=== PATIENT | female | born 1990 ===

== ENCOUNTER 2018-03-11 10:22 | Emergency (ER) | payer OTHER ==
[2018-03-11 10:39] VITALS: RESP 18; O2SAT 100
[2018-03-11] MEDS ORDERED: Sodium Chloride 0.9% 1,000 ML IV STA (11:11)
--- NOTE | 2018-03-11 11:23 | ED PDOC ---
Arrival/HPI - General Chief Complaint: GI Problem Time Seen by Provider: 03/11/18 11:08 Historian: Patient - History of Present Illness Narrative History of Present Illness (Text): 03/11/18 11:20 27 year old female presents to the Emergency department complaining of nausea for 3 days. Nausea is worsened when the patient eats. Patient also complains of associated lightheadedness and fatigue. Last menstrual period started 03/01 but the patient reports it was shorter than usual. Patient denies any abdominal pain , fever, chills, chest pain, shortness of breath, vomiting, diarrhea, urinary symptoms, back pain, neck pain, or any other complaints. 03/11/18 13:47 Time/Duration: < week (3 days) Symptom Onset: Gradual Symptom Course: Unchanged Context: Home Past Medical History - Provider Review Nursing Documentation Reviewed: Yes - Psychiatric Hx Substance Use: No Family/Social History - Physician Review Nursing Documentation Reviewed: Yes Family/Social History: Unknown Family HX Smoking Status: Never Smoked Hx Alcohol Use: No Hx Substance Use: No Allergies/Home Meds Allergies/Adverse Reactions: Allergies No Known Allergies Allergy (Verified 03/11/18 10:39) Review of Systems - Review of Systems Constitutional: Fatigue. absent: Weight Change, Fevers, Night Sweats Eyes: absent: Vision Changes ENT: absent: Sore Throat, Rhinorrhea Respiratory: absent: SOB, Cough Cardiovascular: absent: Chest Pain Gastrointestinal: Nausea. absent: Abdominal Pain, Constipation, Diarrhea, Vomiting Genitourinary Female: absent: Dysuria, Vaginal Bleeding, Vaginal Discharge Musculoskeletal: absent: Back Pain, Neck Pain Skin: absent: Rash Neurological: Other (lightheaded). absent: Headache, Dizziness, Focal Weakness , Gait Changes, Speech Changes, Facial Droop, Disequilibrium Endocrine: absent: Diaphoresis Psychiatric: absent: Anxiety, Depression Physical Exam Vital Signs Reviewed: Yes Vital Signs Temp Pulse Resp BP Pulse Ox 03/11/18 10:36 98.3 F 74 18 121/79 100 Temperature: Afebrile Blood Pressure: Normal Pulse: Regular Respiratory Rate: Normal Appearance: Positive for: Well-Appearing, Non-Toxic, Comfortable Pain Distress: None Mental Status: Positive for: Alert and Oriented X 3 - Systems Exam Head: Present: Atraumatic, Normocephalic Pupils: Present: PERRL Extroacular Muscles: Present: EOMI Conjunctiva: Present: Normal Ears: Present: Normal, NORMAL TM. No: Erythema Mouth: Present: Moist Mucous Membranes Pharnyx: Present: Normal. No: ERYTHEMA, EXUDATE Neck: Present: Normal Range of Motion Respiratory/Chest: Present: Clear to Auscultation, Good Air Exchange. No: Respiratory Distress, Accessory Muscle Use Cardiovascular: Present: Regular Rate and Rhythm, Normal S1, S2. No: Murmurs Abdomen: No: Tenderness, Distention, Peritoneal Signs Back: Present: Normal Inspection Upper Extremity: Present: Normal Inspection. No: Cyanosis, Edema Lower Extremity: Present: Normal Inspection. No: Edema Neurological: Present: GCS=15, CN II-XII Intact, Speech Normal Skin: Present: Warm, Dry, Normal Color. No: Rashes Psychiatric: Present: Alert, Oriented x 3, Normal Insight, Normal Concentration Medical Decision Making ED Course and Treatment: 03/11/18 11:25 Impression: 27 year old female presents to the Emergency department complaining of nausea for 3 days. Plan: -- Urinalysis -- Labs -- Pepcid, Zofran, and Sodium Chloride IV fluids -- Reassess and disposition Progress Notes: 03/11/18 13:09 Symptoms improved after IVF. Now complaining of occasional dysuria. Will dc with antibiotics. She was instructed to follow-up with GI. Abdomen soft NT/ND on reevaluation 03/11/18 13:46 - Lab Interpretations Lab Results: 03/11/18 11:30 03/11/18 11:30 Lab Results 03/11/18 11:30: Sodium 143, Potassium 4.4, Chloride 105, Carbon Dioxide 24, Anion Gap 18, BUN 6 L, Creatinine 0.6 L, Est GFR ( Amer) > 60, Est GFR ( Non-Af Amer) > 60, Random Glucose 96, Calcium 9.5, Phosphorus 2.7, Magnesium 2.2 , Total Bilirubin 0.4, AST 50 H, ALT 34, Alkaline Phosphatase 76, Total Protein 8.3, Albumin 4.9 H, Globulin 3.4, Albumin/Globulin Ratio 1.4, Lipase 35 03/11/18 11:30: Urine Color Yellow, Urine Appearance Clear, Urine pH 6.0, Ur Specific [place] <= 1.005, Urine Protein Negative, Urine Glucose (UA) Negative, Urine Ketones Negative, Urine Blood Negative, Urine Nitrate Negative, Urine Bilirubin Negative, Urine Urobilinogen 0.2, Ur Leukocyte Esterase Trace H, Urine RBC 0 - 2, Urine WBC 2 - 5, Ur Epithelial Cells 4 - 5, Urine Bacteria Few 03/11/18 11:30: WBC 8.9, RBC 5.23, Hgb 13.7, Hct 42.3, MCV 80.9, MCH 26.2, MCHC 32.4, RDW 13.5, Plt Count 335, MPV 10.4, Gran % 57.5, Lymph % (Auto) 38.1 H, [place] % (Auto) 4.0, Eos % (Auto) 0.3 L, Baso % (Auto) 0.1, Gran # 5.09, Lymph # ( Auto) 3.4, [place] # (Auto) 0.4, Eos # (Auto) 0.0, Baso # (Auto) 0.01 - Medication Orders Current Medication Orders: Discontinued Medications Famotidine (Pepcid) 20 mg IVP STAT STA Stop: 03/11/18 11:13 Last Admin: 03/11/18 11:36 Dose: 20 mg IVP Administration Document 03/11/18 11:36 RI (Rec: 03/11/18 11:36 [id number] Charges for Administration # of IVP Administrations 1 Sodium Chloride (Sodium Chloride 0.9%) 1,000 mls @ 999 mls/hr IV .Q1H1M STA Stop: 03/11/18 12:11 Last Admin: 03/11/18 11:36 Dose: 999 mls/hr eMAR Start Stop Document 03/11/18 11:36 RI (Rec: 03/11/18 11:36 [id number] Intravenous Solution Start Date 03/11/18 Start Time 11:36 Nitrofurantoin Macrocrystals (Macrobid) 100 mg PO STAT STA PRN Reason: Protocol Stop: 03/11/18 13:16 Last Admin: 03/11/18 13:35 Dose: 100 mg Ondansetron HCl (Zofran Inj) 4 mg IVP STAT STA Stop: 03/11/18 11:13 Last Admin: 03/11/18 11:36 Dose: 4 mg IVP Administration Document 03/11/18 11:36 HI (Rec: 06/11/18 11:36 HI [id number]) Charges for Administration # of IVP Administrations 1 - Scribe Statement The provider has reviewed the documentation as recorded by the Scribe Fer Haskins All medical record entries made by the Scribe were at my direction and personally dictated by me. I have reviewed the chart and agree that the record accurately reflects my personal performance of the history, physical exam, medical decision making, and the department course for this patient. I have also personally directed, reviewed, and agree with the discharge instructions and disposition. Disposition/Present on Arrival - Present on Arrival Any Indicators Present on Arrival: No History of DVT/PE: No History of Uncontrolled Diabetes: No Urinary Catheter: No History of Decub. Ulcer: No History Surgical Site Infection Following: None - Disposition Have Diagnosis and Disposition been Completed?: Yes Diagnosis: UTI (urinary tract infection) Disposition: HOME/ ROUTINE Disposition Time: 13:16 Patient Plan: Discharge Patient Problems: Current Active Problems Problem Status Onset UTI (urinary tract infection) Acute Condition: GOOD Discharge Instructions (ExitCare): Urinary Tract Infections in Adults, Urinary Tract Infection, Adult (DC) Additional Instructions: Follow-up with PMD within 2 days. Return to ED if condition worsens. Take full course of antibiotics. Prescriptions: Nitrofurantoin Macrocrystals [Macrobid] 100 mg PO BID #14 cap Forms: [employer] ([place])
[2018-03-11 11:40] LABS: BASO # 0.01 K/mm3 (0.0-2.0); BASO % 0.1 % (0.0-3.0); EOS % 0.3 % (1.5-5.0); GRAN # 5.09 (1.4-6.5); GRAN % 57.5 % (50.0-68.0); HEMOGLOBIN 13.7 g/dL (12.0-16.0); LYMPH # 3.4 (1.2-3.4); LYMPH % 38.1 % (22.0-35.0); MEAN CELL VOLUME 80.9 fl (80.0-105.0); MEAN CORPUSCULAR HEMOGLOBIN 26.2 pg (25.0-35.0); MEAN CORPUSCULAR HGB CONC 32.4 g/dl (31.0-37.0); MEAN PLATELET VOLUME 10.4 fl (7.0-11.0); MONO # 0.4 (0.1-0.6); RBC 5.23 10^6/uL (3.5-6.1); RED CELL DISTRIBUTION WIDTH 13.5 % (11.5-14.5); WHITE BLOOD COUNT 8.9 10^3/ul (4.5-11.0)
[2018-03-11 11:46] LABS: URINE BILIRUBIN NEGATIVE (NEGATIVE); URINE BLOOD NEGATIVE (NEGATIVE); URINE GLUCOSE (UA) NEGATIVE (NEGATIVE); URINE LEUKOCYTE ESTERASE TRACE Leu/uL (NEGATIVE); URINE PROTEIN NEGATIVE mg/dL (<30 mg/dL); URINE UROBILINOGEN 0.2 E.U./dL (<1 E.U./dL)
[2018-03-11 11:48] LABS: URINE APPEARANCE CLEAR (CLEAR); URINE COLOR YELLOW (YELLOW)
[2018-03-11 11:51] LABS: ALB/GLOB RATIO 1.4 (1.1-1.8); ALBUMIN 4.9 g/dL (3.0-4.8); ALT/SGPT 34 U/L (7-56); AST/SGOT 50 U/L (14-36); BLOOD UREA NITROGEN 6 mg/dL (7-21); CALCIUM 9.5 mg/dL (8.4-10.5); GFR AFRICAN-AMERICAN > 60; GFR NON-AFRICAN AMERICAN > 60; LIPASE 35 U/L (23-300)
[2018-03-11 12:22] LABS: URINE BACTERIA FEW (NEG); URINE RBC 0 - 2 /hpf (0-2)
[2018-03-11 14:19] VITALS: BP 125/72; PULSE 80; TEMP 98.2
== END 2018-03-11 13:33 | disposition home or self-care (01) ==
LOC: ED 10:22
DX: N39.0 Urinary tract infection, site not specified (principal)
CPT/HCPCS: 80053; 81001; 83690; 83735; 84100; 85025; 87086; 96374; 96375; 99284; J2405; J7030

== ENCOUNTER 2018-12-10 08:59 | Emergency (ER) | payer OTHER ==
[2018-12-10] MEDS ORDERED: Sodium Chloride 0.9% 1,000 ML IV STA (10:00)
--- NOTE | 2018-12-10 10:24 | ED PDOC ---
Arrival/HPI - General Chief Complaint: GI Problem Time Seen by Provider: 12/10/18 09:03 Historian: Patient - History of Present Illness Narrative History of Present Illness (Text): 12/10/18 10:00 28 y/o female, with no significant PMH, presents to the ED for evaluation of nausea, vomiting and diarrhea x 3 days. Patient describes associated generalized abdominal cramping, relieved with bowel movements. Patient reports her last episode of emesis was yesterday, non-bloody and non-bilious. Patient reports 2 episodes non-bloody diarrhea since onset and decreased PO intake secondary to nausea. Patient denies any recent changes in diet, sick contact or any recent travel. Patient denies any other associated somatic complaints. LMP 11/14. Patient denies any fever, chills, back pain, neck pain/stiffness, urinary symptoms, vaginal bleeding/discharge, headache, dizziness, or any other complaints. Time/Duration: < week Symptom Onset: Gradual Symptom Course: Unchanged Activities at Onset: Light Context: Home Past Medical History - Provider Review Nursing Documentation Reviewed: Yes - Psychiatric Hx Psychophysiologic Disorder: No Hx Substance Use: No Family/Social History - Physician Review Nursing Documentation Reviewed: Yes Family/Social History: Unknown Family HX Smoking Status: Never Smoked Hx Alcohol Use: No Hx Substance Use: No Allergies/Home Meds Allergies/Adverse Reactions: Allergies shrimp Allergy (Verified 12/10/18 09:19) ITCHING Home Medications: Home Meds Medication Instructions Recorded Confirmed Levonorgestrel-Ethin Estradiol 1 tab PO DAILY 12/10/18 12/10/18 [Larissia-28 Tablet] Review of Systems - Physician Review All systems were reviewed & negative as marked: Yes - Review of Systems Constitutional: Normal. absent: Fevers Eyes: absent: Vision Changes ENT: Normal. absent: Hearing Changes Respiratory: Normal. absent: SOB, Cough Cardiovascular: Normal. absent: Chest Pain, Palpitations, Syncope Gastrointestinal: Abdominal Pain, Diarrhea, Nausea, Vomiting, Appetite Changes. absent: Hematochezia, Hematemesis Genitourinary Female: Normal. absent: Dysuria, Frequency, Urine Output Changes, Vaginal Bleeding, Vaginal Discharge Musculoskeletal: Normal. absent: Back Pain, Neck Pain Skin: Normal. absent: Rash Neurological: Normal. absent: Headache, Dizziness Endocrine: Normal. absent: Diaphoresis Hemo/Lymphatic: Normal Psychiatric: Normal. absent: Anxiety Physical Exam Vital Signs Reviewed: Yes Vital Signs Temp Pulse Resp BP Pulse Ox 12/10/18 09:20 98.6 F 77 16 119/78 99 Temperature: Afebrile Blood Pressure: Normal Pulse: Regular Respiratory Rate: Normal Appearance: Positive for: Well-Appearing, Non-Toxic, Comfortable Pain Distress: None Mental Status: Positive for: Alert and Oriented X 3 - Systems Exam Head: Present: Atraumatic, Normocephalic Pupils: Present: PERRL Extroacular Muscles: Present: EOMI Conjunctiva: Present: Normal Mouth: Present: Moist Mucous Membranes Neck: Present: Normal Range of Motion. No: MIDLINE TENDERNESS, Paraspinal Tenderness Respiratory/Chest: Present: Clear to Auscultation, Good Air Exchange. No: Respiratory Distress, Accessory Muscle Use Cardiovascular: Present: Regular Rate and Rhythm, Normal S1, S2. No: Murmurs Abdomen: Present: Normal Bowel Sounds. No: Tenderness, Distention, Peritoneal Signs, Rebound, Guarding Back: Present: Normal Inspection. No: CVA Tenderness, Midline Tenderness, Paraspinal Tenderness Upper Extremity: Present: Normal Inspection, Normal ROM, NORMAL PULSES, Neurovascularly Intact, Capillary Refill < 2s. No: Cyanosis, Edema, Temperature Abnormalties Lower Extremity: Present: Normal Inspection, NORMAL PULSES, Normal ROM, Neur ovascularly Intact, Capillary Refill < 2 s. No: Edema, Temperature Abnormalties Neurological: Present: GCS=15, CN II-XII Intact, Speech Normal, Motor Func Grossly Intact, Normal Sensory Function, Gait Normal Skin: Present: Warm, Dry, Normal Color. No: Rashes Psychiatric: Present: Alert, Oriented x 3, Normal Insight, Normal Concentration, Normal Affect, Normal Mood Medical Decision Making ED Course and Treatment: 12/10/18 10:00 Initial Plan: * CBC, CMP * Lipase * Coags * UA, hcG * Pepcid * IV fluids * Zofran 11:19 On reevaluation, nausea resolved. Will finish IVF. Labwork reviewed, unremarkable. UA with trace leuk esterase, WBC, epithelial cells. Spoke with patient, will wait for urine culture to determine if antibiotics are indicated. 12:50 Pt feeling much better, will discharge home with medications and recommend PMD followup, rest, increase in fluids. Diagnostic testing results and plan of care discussed with patient. Strict instructions given regarding prescription use, importance of followup, and signs/symptoms to return to ER including fever, chills, or any other new/worsening symptoms. Pt verbalized understanding of discussion. Patient is A&Ox3, ambulating with steady gait, with vital signs stable for discharge. - Lab Interpretations Lab Results: 12/10/18 10:40 12/10/18 10:40 Lab Results 12/10/18 10:40: Sodium 138, Potassium 4.1, Chloride 104, Carbon Dioxide 24, Anion Gap 13, BUN 8, Creatinine 0.6 L, Est GFR ( Amer) > 60, Est GFR (Non-Af Amer) > 60, Random Glucose 90, Calcium 9.4, Magnesium 2.0, Total Bilirubin 0.3, AST 34, ALT 30, Alkaline Phosphatase 76, Total Protein 8.4 H, Albumin 4.7, Globulin 3.6, Albumin/Globulin Ratio 1.3, Lipase 52 12/10/18 10:40: Urine Color Yellow, Urine Appearance Clear, Urine pH 6.0, Ur Specific [place] 1.010, Urine Protein Negative, Urine Glucose (UA) Negative, Urine Ketones Negative, Urine Blood Negative, Urine Nitrate Negative, Urine Bilirubin Negative, Urine Urobilinogen 0.2, Ur Leukocyte Esterase Small H, Urine RBC 0 - 2, Urine WBC 5 - 10 H, Ur Epithelial Cells 6 - 8 H, Urine Bacteria Many, Urine HCG, Qual Negative 12/10/18 10:40: PT 12.8 H, INR 1.13, APTT 30.6 12/10/18 10:40: WBC 9.4, RBC 5.12, Hgb 13.6, Hct 42.2, MCV 82.4, MCH 26.6, MCHC 32.2, RDW 13.3, Plt Count 360, MPV 10.2, Neut % (Auto) 74.2 H, Lymph % (Auto) 19.5 L, [place] % (Auto) 5.6, Eos % (Auto) 0.7 L, Baso % (Auto) 0.0, Lymph # (Auto) 1.8, [place] # (Auto) 0.5, Eos # (Auto) 0.1, Baso # (Auto) 0.00, Absolute Neuts (auto) 6.94 H I have reviewed the lab results: Yes - Medication Orders Current Medication Orders: Sodium Chloride (Sodium Chloride 0.9%) 1,000 mls @ 1,000 mls/hr IV .Q1H STA Stop: 12/10/18 10:59 Discontinued Medications Famotidine (Pepcid) 20 mg IVP STAT STA Stop: 12/10/18 10:01 Ondansetron HCl (Zofran Inj) 4 mg IVP STAT STA Stop: 12/10/18 10:01 - PA / AGRONOMY ADVISOR / Resident Statement MD/DO has reviewed & agrees with the documentation as recorded. - Scribe Statement The provider has reviewed the documentation as recorded by the Scribe Rogers Muñoz. All medical record entries made by the Scribe were at my direction and personally dictated by me. I have reviewed the chart and agree that the record accurately reflects my personal performance of the history, physical exam, medical decision making, and the department course for this patient. I have also personally directed, reviewed, and agree with the discharge instructions and d isposition. Disposition/Present on Arrival - Present on Arrival Any Indicators Present on Arrival: No History of DVT/PE: No History of Uncontrolled Diabetes: No Urinary Catheter: No History of Decub. Ulcer: No History Surgical Site Infection Following: None - Disposition Have Diagnosis and Disposition been Completed?: Yes Diagnosis: Nausea vomiting and diarrhea Disposition: HOME/ ROUTINE Disposition Time: 11:21 Patient Plan: Discharge Patient Problems: Current Active Problems Problem Status Onset Nausea vomiting and diarrhea Acute Condition: IMPROVED Discharge Instructions (ExitCare): Acute Abdomen (Belly Pain), Viral Gastroenteritis Print Language: TONGAN Additional Instructions: Pepcid cada 12 horas segn sea necesario para la indigestin. Bentyl cada 8 horas segn sea necesario para los clicos Zofran cada 8 horas segn sea necesario para las nuseas. Aumentar los fluidos Seguimiento con mdico primario en 2 johnson. Regrese a la noris de emergencias con cualquier sntoma nuevo o que empeore Prescriptions: Dicyclomine [Bentyl] 10 mg PO Q8 PRN #9 cap PRN Reason: abdominal pain Famotidine [Pepcid] 20 mg PO Q12 PRN #14 tab PRN Reason: Indigestion Ondansetron ODT [Zofran ODT] 4 mg PO Q8H PRN #6 odt PRN Reason: Nausea/Vomiting Referrals: Gurwinder Raya MD [Staff Provider] - Follow up with primary Melanie Curtis MD [Medical Doctor] - Follow up with primary [facility] [place] [Outside] - Follow up with primary Forms: [employer] (Spanish), WORK NOTE
[2018-12-10 10:55] LABS: EOS # 0.1 (0.0-0.7); EOS % 0.7 % (1.5-5.0); HEMOGLOBIN 13.6 g/dL (12.0-16.0); LYMPH # 1.8 (1.2-3.4); LYMPH % 19.5 % (22.0-35.0); MEAN CELL VOLUME 82.4 fl (80.0-105.0); MEAN CORPUSCULAR HEMOGLOBIN 26.6 pg (25.0-35.0); MEAN CORPUSCULAR HGB CONC 32.2 g/dl (31.0-37.0); MEAN PLATELET VOLUME 10.2 fl (7.0-11.0); MONO # 0.5 (0.1-0.6); MONO % 5.6 % (1.0-6.0); RBC 5.12 10^6/uL (3.5-6.1); RED CELL DISTRIBUTION WIDTH 13.3 % (11.5-14.5); WHITE BLOOD COUNT 9.4 10^3/uL (4.5-11.0)
[2018-12-10 11:03] LABS: URINE BILIRUBIN NEGATIVE (NEGATIVE); URINE BLOOD NEGATIVE (NEGATIVE); URINE GLUCOSE (UA) NEGATIVE (NEGATIVE); URINE LEUKOCYTE ESTERASE SMALL Leu/uL (NEGATIVE); URINE PROTEIN NEGATIVE mg/dL (<30 mg/dL); URINE UROBILINOGEN 0.2 E.U./dL (<1 E.U./dL)
[2018-12-10 11:04] LABS: ALB/GLOB RATIO 1.3 (1.1-1.8); ALBUMIN 4.7 g/dL (3.0-4.8); ALT/SGPT 30 U/L (7-56); AST/SGOT 34 U/L (14-36); BLOOD UREA NITROGEN 8 mg/dL (7-21); CALCIUM 9.4 mg/dL (8.4-10.5); GFR NON-AFRICAN AMERICAN > 60; INR 1.13; LIPASE 52 U/L (23-300); PARTIAL THROMBOPLASTIN TIME 30.6 Seconds (26.9-38.3); PROTHROMBIN TIME 12.8 SECONDS (9.4-12.5)
[2018-12-10 11:06] LABS: URINE APPEARANCE CLEAR (CLEAR); URINE COLOR YELLOW (YELLOW)
[2018-12-10 11:12] LABS: HCG,QUALITATIVE URINE NEGATIVE (NEGATIVE)
[2018-12-10 11:15] LABS: URINE BACTERIA MANY /hpf; URINE RBC 0 - 2 /hpf (0-2)
[2018-12-10 12:08] VITALS: BP 115/70; PULSE 74; RESP 18; TEMP 97.9; O2SAT 100
== END 2018-12-10 13:15 | disposition home or self-care (01) ==
LOC: ED 08:59
DX: R11.2 Nausea with vomiting, unspecified (principal); R19.7 Diarrhea, unspecified
CPT/HCPCS: 80053; 81001; 81025; 83690; 83735; 84703; 85025; 85610; 85730; 87086; 96361; 96374; 96375; 99284; J2405; J7030